=== PATIENT | female | born 1980 | race Two or more races ===

== ENCOUNTER 2024-01-18 06:00 | Outpatient (CLI) | payer OTHER ==
[~2024-01-18] VITALS: Ht 160 cm; Wt 81.6 kg
[2024-01-18 09:17] LABS: HEMATOCRIT 26.7 % (36.0-45.00); MEAN CORPUSCULAR HGB CONC 31.1 g/dl (32.0-36.0); PLATELET COUNT 348 K/uL (150-450); RED BLOOD COUNT 4.46 M/uL (4.00-6.00)
[2024-01-18 09:21] LABS: MEAN CELL VOLUME 59.8 fL (80.00-100.00); MEAN CORPUSCULAR HEMOGLOBIN 18.6 pg (27.00-32.0)
[2024-01-18 09:22] LABS: HEMOGLOBIN 8.3 g/dL (12.0-15.00)
[2024-01-18 09:23] LABS: PH,URINE 7.5 (5.0-8.0); URINE APPEARANCE Clear; URINE BILIRRUBIN Negative (NEGATIVE); URINE BLOOD Large; URINE COLOR Yellow; URINE GLUCOSE Negative (NEGATIVE); URINE KETONE Negative (NEGATIVE); URINE LEUKOCYTE Trace; URINE NITRATE Negative; URINE PROTEIN Trace (NEGATIVE)
[2024-01-18 09:29] LABS: URINE BACTERIA 691.7 uL (0.0-1933); URINE EPITHELIAL CELLS 45.6 uL (0.0-38.8); URINE RBC 99.2 uL (0.0-20.8)
[2024-01-18 09:38] LABS: INR 0.95; PARTIAL THROMBOPLASTIN TIME 25.8 SECONDS (22.0-34.0); PROTHROMBIN TIME 10.4 SECONDS (9.0-11.5)
[2024-01-18 10:04] LABS: URINE CRYSTALS MODERATE /HPF
[2024-01-18 10:37] LABS: ALBUMIN 3.4 gm/dL (3.4-5.0); BILIRUBIN TOTAL 0.34 mg/dL (0.3-1.2); CALCIUM 9.4 mg/dL (8.5-10.1); CREATININE SERUM 0.53 mg/dL (0.55-1.02); GFR 126.51; GLOBULINA 4.3 G/DL (2.4-3.5); POTASSIUM 4.21 mEq/L (3.5-5.1); TOTAL PROTEIN 7.7 gm/dL (6.4-8.2)
== END 2024-01-18 08:01 | disposition home or self-care (01) ==
LOC: RAD 06:00 → SURH 01-23 07:15 → EDSTATUS 01-23 07:15
PROVIDERS: ATTEND Obstetrics & Gynecology
DX: D25.9 Leiomyoma of uterus, unspecified (principal); N93.9 Abnormal uterine and vaginal bleeding, unspecified

== ENCOUNTER 2024-01-21 16:53 | Inpatient (IN) | payer OTHER ==
[~2024-01-21] VITALS: Ht 160 cm; Wt 81.6 kg
[2024-01-21] MEDS ORDERED: ZESTRIL10 M1 PO (17:16)
--- NOTE | 2024-01-21 17:16 | NUR ---
SE RECIBE PTE FEMENINA ALERTA Y ORIENTADA X3 REFIERE HEMOGLOBINA EN 8.3, FUE ENVIADA POR PARA ADMISION. PTE SERA OPERADA EL PROXIMO MIERCOLES POR PARA HISTERECTOMIA. AL MOMENTO, PTE NO PRESENTA SANGRADO. SE LENNIE S/V Y SE UBICA.
[2024-01-21] MEDS ORDERED: ENALAPRILAT DIHYDRATE 1.25 MG/ML VIAL IV ONE (18:00)
[2024-01-21] MEDS ORDERED: FUROsemide 40 MG/4 ML VIAL IV ONE (18:00)
[2024-01-21] MEDS ORDERED: FUROsemide 20 MG/2 ML VIAL IV SCH (18:00)
[2024-01-21] MEDS ORDERED: 0.9 % SODIUM CHLORIDE 1,000 ML IV SCH (19:15)
[2024-01-21 19:22] LABS: INR 0.94; PARTIAL THROMBOPLASTIN TIME 25.1 SECONDS (22.0-34.0); PROTHROMBIN TIME 10.3 SECONDS (9.0-11.5)
[2024-01-21 19:26] LABS: ALBUMIN 3.3 gm/dL (3.4-5.0); BILIRUBIN TOTAL 0.3 mg/dL (0.3-1.2); CALCIUM 9.3 mg/dL (8.5-10.1); CREATININE SERUM 0.63 mg/dL (0.55-1.02); GFR 103.63; GLOBULINA 5.2 G/DL (2.4-3.5); POTASSIUM 3.39 mEq/L (3.5-5.1); TOTAL PROTEIN 8.5 gm/dL (6.4-8.2)
[2024-01-21] MEDS ORDERED: ACETAMINOPHEN 500 MG GEL..CAP PO PRN (19:30)
[2024-01-21] MEDS ORDERED: ONDANSETRON HCL 4 MG in 0.9 % SODIUM CHLORIDE 50 ML IV PRN (19:30)
[2024-01-21 19:31] LABS: MEAN CORPUSCULAR HGB CONC 30.8 g/dl (32.0-36.0); PLATELET COUNT 317 K/uL (150-450); RED BLOOD COUNT 4.67 M/uL (4.00-6.00)
[2024-01-21 19:34] LABS: HEMOGLOBIN 8.6 g/dL (12.0-15.00); MEAN CORPUSCULAR HEMOGLOBIN 18.4 pg (27.00-32.0); RED CELL DISTRIBUTION WIDTH 25.9 % (11.5-14.5)
[2024-01-21 19:45] LABS: URINE APPEARANCE Clear; URINE BILIRRUBIN Negative (NEGATIVE); URINE BLOOD Negative; URINE COLOR Yellow; URINE GLUCOSE Negative (NEGATIVE); URINE KETONE Negative (NEGATIVE); URINE LEUKOCYTE Trace; URINE NITRATE Negative; URINE PROTEIN Negative (NEGATIVE)
[2024-01-21 19:48] LABS: URINE BACTERIA 1514.4 uL (0.0-1933); URINE EPITHELIAL CELLS 46.9 uL (0.0-38.8); URINE WBC 42.9 uL (0.0-23.2)
[2024-01-21 20:04] VITALS: BP 170/90
[2024-01-21 20:19] LABS: URINE RBC 0.7 uL (0.0-20.8)
[2024-01-21 22:17] VITALS: BP 143/78; O2SAT 99
[2024-01-22 01:22] VITALS: BP 129/75; O2SAT 97
[2024-01-22 08:36] VITALS: BP 176/83
[2024-01-22] MEDS ORDERED: FAMOTIDINE/PF 20 MG in 0.9 % SODIUM CHLORIDE 8 ML IV PUSH SCH (09:00)
[2024-01-22] MEDS ORDERED: POTASSIUM CHLORIDE 10 MEQ CAPSULE PO NR (10:00)
[2024-01-22] MEDS ORDERED: LISINOPRIL 10 MG TABLET PO NR (12:00)
[2024-01-22 15:05] VITALS: BP 178/103; O2SAT 99
[2024-01-22 20:25] LABS: HEMATOCRIT 33.1 % (36.0-45.00); HEMOGLOBIN 10.4 g/dL (12.0-15.00); MEAN CORPUSCULAR HGB CONC 31.3 g/dl (32.0-36.0); RED BLOOD COUNT 5.18 M/uL (4.00-6.00)
[2024-01-22 20:39] LABS: PLATELET COUNT 318 K/uL (150-450); RED CELL DISTRIBUTION WIDTH 30.4 % (11.5-14.5)
[2024-01-23] VITALS: BP 160/90; O2SAT 92
[2024-01-23 06:45] LABS: HEMATOCRIT 32.8 % (36.0-45.00); HEMOGLOBIN 10.4 g/dL (12.0-15.00); MEAN CORPUSCULAR HEMOGLOBIN 20.5 pg (27.00-32.0); MEAN CORPUSCULAR HGB CONC 31.7 g/dl (32.0-36.0); PLATELET COUNT 290 K/uL (150-450); RED BLOOD COUNT 5.08 M/uL (4.00-6.00)
[2024-01-23 07:13] LABS: ALBUMIN 3.1 gm/dL (3.4-5.0); BILIRUBIN TOTAL 0.53 mg/dL (0.3-1.2); CALCIUM 9.1 mg/dL (8.5-10.1); CREATININE SERUM 0.56 mg/dL (0.55-1.02); GFR 118.72; GLOBULINA 4.3 G/DL (2.4-3.5); POTASSIUM 4.13 mEq/L (3.5-5.1); TOTAL PROTEIN 7.4 gm/dL (6.4-8.2)
[2024-01-23 07:18] LABS: MEAN CELL VOLUME 64.6 fL (80.00-100.00); RED CELL DISTRIBUTION WIDTH 28.9 % (11.5-14.5)
[2024-01-23 08:45] VITALS: BP 160/75
[2024-01-23] MEDS ORDERED: LISINOPRIL 10 MG TABLET PO SCH (09:00)
[2024-01-23] MEDS ORDERED: hydrALAZINE HCL 20 MG VIAL IV ONE (21:00)
[2024-01-23] MEDS ORDERED: CEFOXITIN SODIUM 2,000 MG VIAL IV ONE (21:00)
[2024-01-23] MEDS ORDERED: RINGERS SOLUTION,LACTATED 1,000 ML IV SCH (22:30)
[2024-01-23] MEDS ORDERED: MEPERIDINE HCL/PF 50 MG/ML VIAL IM PRN (22:30)
[2024-01-23] MEDS ORDERED: PROMETHAZINE HCL 25 MG/ML AMPUL IM PRN (22:30)
[2024-01-23] MEDS ORDERED: MORPHINE SULFATE 4 MG/ML VIAL IV ONE (23:05)
[2024-01-24] MEDS ORDERED: OxyCODONE HCL/APAP UD (PERCOCET) PO PRN
[2024-01-24] MEDS ORDERED: ENALAPRILAT DIHYDRATE 1.25 MG/ML VIAL IV PRN (03:30)
[2024-01-24] MEDS ORDERED: NITROGLYCERIN IN 5 % DEXTROSE 50 MG/250 ML BOTTLE IV SCH (03:45)
[2024-01-24 04:53] LABS: HEMATOCRIT 32.3 % (36.0-45.00); PLATELET COUNT 374 K/uL (150-450); RED BLOOD COUNT 5.14 M/uL (4.00-6.00)
[2024-01-24 04:54] LABS: HEMOGLOBIN 10.3 g/dL (12.0-15.00); MEAN CELL VOLUME 62.8 fL (80.00-100.00); RED CELL DISTRIBUTION WIDTH 28.7 % (11.5-14.5)
[2024-01-24 05:17] VITALS: BP 147/86; O2SAT 97
[2024-01-24 06:50] VITALS: BP 154/85
[2024-01-24] MEDS ORDERED: NITROGLYCERIN IN 5 % DEXTROSE 250 ML IV SCH (07:00)
[2024-01-24 08:48] VITALS: BP 157/71
[2024-01-24] MEDS ORDERED: LISINOPRIL 20 MG TABLET PO SCH (09:00)
[2024-01-24] MEDS ORDERED: AMLODIPINE BESYLATE 5 MG TABLET PO NR (10:15)
[2024-01-24] MEDS ORDERED: LOSARTAN POTASSIUM 50 MG TABLET PO NR (10:15)
[2024-01-24 17:38] VITALS: BP 155/85; O2SAT 95
[2024-01-25 01:22] VITALS: BP 180/100; O2SAT 99
[2024-01-25 05:06] VITALS: BP 159/92; O2SAT 98
[2024-01-25] MEDS ORDERED: AMLODIPINE BESYLATE 5 MG TABLET PO SCH ×2 (09:00)
[2024-01-25] MEDS ORDERED: LOSARTAN POTASSIUM 50 MG TABLET PO SCH (09:00)
[2024-01-25 09:18] VITALS: BP 170/90; O2SAT 98
[2024-01-25] MEDS ORDERED: KETOROLAC TROMETHAMINE 30 MG VIAL IV PRN (13:15)
[2024-01-25 18:19] VITALS: BP 162/89
[2024-01-26 02:33] VITALS: BP 138/69; O2SAT 100
[2024-01-26 05:40] LABS: HEMATOCRIT 29.5 % (36.0-45.00); MEAN CORPUSCULAR HGB CONC 30.9 g/dl (32.0-36.0); PLATELET COUNT 312 K/uL (150-450); RED BLOOD COUNT 4.65 M/uL (4.00-6.00)
[2024-01-26 06:31] LABS: HEMOGLOBIN 9.1 g/dL (12.0-15.00); MEAN CELL VOLUME 63.5 fL (80.00-100.00); MEAN CORPUSCULAR HEMOGLOBIN 19.5 pg (27.00-32.0); RED CELL DISTRIBUTION WIDTH 28.5 % (11.5-14.5)
[2024-01-26 08:48] VITALS: BP 150/83; O2SAT 99
[2024-01-26] MEDS ORDERED: METOPROLOL SUCCINATE 25 MG TAB.SR.24H PO SCH (10:46)
[2024-01-26 16:53] VITALS: BP 160/68
[2024-01-27 02:29] VITALS: BP 169/96; O2SAT 100
[2024-01-27 08:04] LABS: CREATININE SERUM 0.5 mg/dL (0.55-1.02); GFR 135.3; POTASSIUM 3.91 mEq/L (3.5-5.1)
[2024-01-27 08:10] LABS: HEMATOCRIT 28.2 % (36.0-45.00); MEAN CORPUSCULAR HGB CONC 31.5 g/dl (32.0-36.0); PLATELET COUNT 278 K/uL (150-450); RED BLOOD COUNT 4.47 M/uL (4.00-6.00)
[2024-01-27 08:12] LABS: MEAN CORPUSCULAR HEMOGLOBIN 19.9 pg (27.00-32.0); RED CELL DISTRIBUTION WIDTH 28.3 % (11.5-14.5)
[2024-01-27 08:13] LABS: HEMOGLOBIN 8.9 g/dL (12.0-15.00); MEAN CELL VOLUME 63.2 fL (80.00-100.00)
[2024-01-27 09:01] VITALS: BP 160/89; O2SAT 94
== END 2024-01-27 14:08 | disposition home or self-care (01) | DRG 743 ==
LOC: ER 16:54 → MEDI 19:57
PROVIDERS: General Practice; Obstetrics & Gynecology; ADMIT Internal Medicine; ATTEND Internal Medicine
PROC: 0UT90ZZ Resection of Uterus, Open Approach (ICD-10-PCS; principal; 2024-01-21)
PROC: 0UT70ZZ Resection of Bilateral Fallopian Tubes, Open Approach (ICD-10-PCS; 2024-01-21)
PROC: 30233N1 Transfusion of Nonautologous Red Blood Cells into Peripheral Vein, Percutaneous Approach (ICD-10-PCS; 2024-01-22)
DX: D25.1 Intramural leiomyoma of uterus (principal); N72 Inflammatory disease of cervix uteri; Z20.822 Contact with and (suspected) exposure to COVID-19; Z90.10 Acquired absence of unspecified breast and nipple; I10 Essential (primary) hypertension; R68.89 Other general symptoms and signs; D64.9 Anemia, unspecified